=== PATIENT | female | born 1945 | race Caucasian/White ===

== ENCOUNTER 2016-12-27 18:34 | Inpatient (IN) | payer MEDICARE, OTHER ==
--- NOTE | ~2016-12-27 | CN ---
Consultation Report [facility] [address] [place]. [address] NAME: PERCY AZUL : 47 STATUS : ADM IN [facility]#: [id number] AGE: 71 ADM/REG DATE : 12/27/16 MR#: [id number] REPORT SERV DATE: 12/28/16 DICTATED BY: TRISTAN JOSEPH DATE: 12/28/16 REPORT STATUS : Draft TRANSCRIBED BY: MODBriana DATE: 12/28/16 NEUROLOGICAL EVALUATION-CONSULTATION DATE OF CONSULTATION: 12/28/2016 REASON FOR CONSULTATION: Persistent headache, past history of craniotomy, episodes of altered mental status. HISTORY OF PRESENT ILLNESS: This is a 71-year-old white female with known history of hypertension, status post CABG and aortic valve replacement, history of craniotomy for removal of left frontal meningioma at [facility] in 2002, who was admitted with episode of altered mental status and persistent headache. As per the patient and her daughter, who was present during history taking with examination, the patient has had persistent headache that is frontal and unresponsive to ifqh-hvo-rcibgez medications or relieved by rest, which apparently is getting worse every day. The patient stated that she had an episode of "feeling strange," having slurred speech, unable to concentrate the morning prior to admission. The patient denied history of seizures. Denied recent history of illnesses or viral illnesses. Denied travel outside of this area. Denied fever or chills. Denied recent head trauma. Denied loss of consciousness. The patient, however, stated that she has had some nausea and generalized weakness and intermittently, the patient has been feeling sweaty. As per the patient's daughter, the patient has had disturbed sleep for many years. The daughter noticed that the patient's "shaking" has been worse, and the patient appears to have history of essential tremor in the last several years. PAST MEDICAL AND SURGICAL HISTORY: As mentioned above, the patient had history of craniotomy for removal of left frontal meningioma in 2002, status post CABG, status post ?mitral valve versus aortic valve replacement, status post subclavian artery stenting. ALLERGIES: TO PENICILLIN, MORPHINE, CARVEDILOL, AND ADVERSE REACTION TO SEEDS AND NUTS. SOCIAL HISTORY: The patient smokes one or more packs of cigarettes per day in the past 45 years. Denied use of alcohol. Denied use of drugs. The patient lives at home. MEDICATIONS: Prior to admission include aspirin 81 mg p.o. daily, atorvastatin 40 mg p.o. daily, vitamin D 1000 units per day, lorazepam 0.5 mg b.i.d. for the essential tremor, Cozaar 100 mg p.o. daily, metoprolol 25 mg q.h.s. FAMILY HISTORY: Significant for history of cerebral aneurysm in one of the patient's sister's, history of coronary artery disease in several family members, and history of massive heart attack in the patient's mother at age 40. REVIEW OF SYSTEMS: As mentioned above. The 14-point review of systems was done and was negative. Consultation Report [place] [id number] [facility] [place]. [address] NAME: PERCY AZUL : 47 STATUS : ADM IN [facility]#: [id number] AGE: 71 ADM/REG DATE : 12/27/16 MR#: [id number] REPORT SERV DATE: 12/28/16 DICTATED BY: TRISTAN JOSEPH DATE: 12/28/16 REPORT STATUS : Draft TRANSCRIBED BY: BENEDICTO DATE: 12/28/16 PHYSICAL EXAMINATION: VITAL SIGNS: Blood pressure 160/73, pulse was 95, respirations 19, and temperature was 98.2. GENERAL: The patient was alert and cooperative, did not appear in acute distress. HEAD AND NECK: Showed her to be normocephalic, there was no evidence of trauma. Auscultation of the neck showed no evidence of bruits. EYES: Sclerae were not icteric. Conjunctivae were pink. ENT: Unremarkable. Airway appeared slightly small, Mallampati class III. CHEST: Symmetrical. LUNGS: Clear. HEART: Status post CABG. ABDOMEN: Soft and nontender. No organomegaly. EXTREMITIES: Showed no clubbing or cyanosis. There was no peripheral edema. Peripheral pulses were intact. SKIN: Clear. NEUROLOGICAL: The patient was alert, cooperative, oriented x3. Her speech was fluent, there was no evidence of aphasia or dysarthria. Thought content and mood were appropriate. No evidence of distant or recent memory deficits noted. Cranial nerve examination II through XII: Visual barreto on confrontation were intact. Funduscopic exam showed no evidence of papilledema, hemorrhages, or exudates. Pupils were 2-3 mm, equal, round and reactive to light and accommodation. Extraocular movements were full. There was no nystagmus. No limitation of upward or downward gaze was noted. The rest of cranial nerve examination was normal. There was no facial asymmetry. Hearing was intact bilaterally, and the lower cranial nerves were intact. Tongue was midline. No atrophy or fibrillations were noted. Palate elevated symmetrically. Sternocleidomastoid and trapezius muscles were normal. Motor exam: Muscle bulk and tone was normal. The patient appeared to have mild essential tremor, involving primarily the patient's head in "no" fashion. A very minimal tremor on ofqfdy-gb-vchp also noted, involving hands. Strength was 5/5 throughout. Deep tendon reflexes were symmetrical throughout, no asymmetry was noted. Sensory exam showed no evidence of deficits on pinprick, light touch, and vibration. Romberg test was negative. Cerebellar exam: Cedsev-qg-rwns accentuated essential tremor at end point. Tzxd-bj-plbg was normal. Rapid alternating movements are slightly clumsy, but within normal range. The patient's gait was normal. LABORATORY STUDIES: Sodium 134, potassium 3.7, chloride 106, BUN 13, creatinine 0.96, calcium 9.5, glucose 123, phosphorus 3.5, magnesium 2.4. WBC count 7.4, hemoglobin 14.1, hematocrit 40.9, platelet count 216,000. PT/INR 1. TSH 1.340. CT scan of the head was reviewed and showed status post craniectomy involving left frontal region with small area of hyperintensity under calvarium, it appears to be old with encephalomalacia in that region. IMPRESSION: 1. Persistent frontal headache, which as per the patient is greater on the right than on the left. Status post left frontal craniectomy and craniotomy for removal of meningioma in 2002. No evidence of regrowth of meningioma noted on CT. The patient may not be a candidate for an MRI in view of for "metal plate," however, it is the Consultation Report [address] [place]. [address] NAME: PERCY AZUL : 47 STATUS : ADM IN [facility]#: [id number] AGE: 71 ADM/REG DATE : 12/27/16 MR#: [id number] REPORT SERV DATE: 12/28/16 DICTATED BY: TRISTAN JOSEPH DATE: 12/28/16 REPORT STATUS : Draft TRANSCRIBED BY: BENEDICTO DATE: 12/28/16 aortic or mitral valve that may be the reason for us not to be able to obtain the MRI since the patient has no information concerning it. The patient's daughter is going to look for the appropriate information to provide to us. 2. Possible recurrent or new onset of partial seizures, involving left frontal region, which may produce episodes of "altered mental status" and possibly abnormal behavior or personality changes in view of its location. Would recommend to obtain an EEG and if needed, an outpatient EEG followup. If abnormal, recommend starting the patient on Keppra 250 b.i.d. or 500 b.i.d. initially. Neurological followup is recommended. 3. Status post CABG for coronary artery disease. 4. Rule out recurrent cardiac arrhythmias. 5. Increased risk of stroke, hypertension, coronary artery disease, tobacco abuse. 6. Tobacco abuse. Deleterious effects of smoking and counseling for smoking cessation was done during this visit. The patient may need to have a prescription for medications appropriate to provide help in smoking cessation. 7. Laboratory studies, should also obtain serum vitamin B12 and folate level and sedimentation rate. 8. Family history of cerebral aneurysm in the patient's sister. Would recommend to obtain CTA of neck and brain to rule out AVM or cerebral aneurysm. Thank you for allowing us to participate in this patient's care. Additional recommendations will follow according to the patient's progress and results of abovementioned studies. BERNARDINO/BENEDICTO Tristan Joseph MD / [id number] CC: Hellen Shell M.D.
--- NOTE | ~2016-12-27 | HP ---
History And Physical [facility] [address] [place]. [address] NAME: PERCY AZUL : 47 STATUS : ADM IN [facility]#: [id number] AGE: 71 ADM/REG DATE : 12/27/16 MR#: [id number] REPORT SERV DATE: 12/28/16 DICTATED BY: LINA ALVARADO DATE: 12/27/16 REPORT STATUS : Draft TRANSCRIBED BY: BENEDICTO DATE: 12/27/16 DATE OF ADMISSION: 12/27/2016 REASON FOR ADMISSION: Slurred speech since this morning when she woke up. Primary care doctor appears to be unclear, I cannot read that writing but Dr. Fields is the linter operator. She has seen Dr. Marinelli for thoracic surgery needs. It appears that PCP is actually Dr. Lantigua. HISTORY OF PRESENT ILLNESS: This is a 71-year-old, female with known history of CAD, history of bypass by Dr. Marinelli x4, history of tobacco use and still unfortunately ongoing, at least 45-pack year history, history of meningioma with surgical resection at [facility] 2002 with a craniotomy at that time, history of appendectomy, hypertension, hyperlipidemia, angioplasty as well, the left subclavian artery with a stent at that time, mitral valve bioprosthesis as well. Hypovitaminosis D, generalized anxiety disorder, apparently on Ativan. The patient comes in with slurred speech since this morning, a progressive headache for the past month, getting worse every day. Nothing seems to worsen it though as well as having lethargy, "feeling strange." Headache appears to be more on the right than the left side. The patient had a CT here, did not show any acute pathology, did note previous left frontal parietal craniotomy though. The patient denies any fevers or chills. Positive nausea. Positive weakness, positive diaphoresis, positive new headache the last month, positive family history of early CAD and AVMs in the family, may have one of her family members due to a brain aneurysm. No chest pain. No chest pressure. No shortness of breath. No diarrhea. No vomiting, positive nausea. PAST MEDICAL HISTORY/PAST SURGICAL HISTORY: See above. ALLERGIES: APPARENTLY ARE TO PENICILLIN, MORPHINE WHICH IS QUESTIONABLE, HIGH FEVER "SICK." CARVEDILOL GIVES HIVES BUT YET SUPPOSEDLY SHE TAKES METOPROLOL. SEEDS AND NUTS CAUSE DRUG INTOLERANCE WITH DIVERTICULITIS. SOCIAL HISTORY: Continued tobacco abuser, at least 45 pack years actively smoking a pack a day. No drug use. No alcohol use per patient. Lives at home. HOME MEDICATIONS: See MAR. We will continue what is relevant. FAMILY HISTORY: As I said, early CAD and one family member may have from brain aneurysm that ruptured. History And Physical [address] [place]. [address] NAME: PERCY AZUL : 47 STATUS : ADM IN PAT#: [id number] AGE: 71 ADM/REG DATE : 12/27/16 MR#: [id number] REPORT SERV DATE: 12/28/16 DICTATED BY: LINA ALVARADO DATE: 12/27/16 REPORT STATUS : Draft TRANSCRIBED BY: BENEDICTO DATE: 12/27/16 REVIEW OF SYSTEMS: Review of systems done, see HPI. Otherwise, negative. OBJECTIVE: VITAL SIGNS: Blood pressure 194/93, 98.6 temp, pulse 106, 16 respirations, 98% on room air. GENERAL: No acute distress. HEENT: PERRLA. No scleral icterus. CARDIOVASCULAR: Tachycardic but appears regular. No carotid murmur. RESPIRATORY: Decreased breath sounds. No overt wheezes or crackles. ABDOMEN: Nontender, nondistended. Positive bowel sounds. EXTREMITIES: No edema, no ecchymosis. NEURO: A and O x4/4. GCS of 15. Bilateral upper and lower extremity 5/5 power. LABORATORY DATA: White count 7.8, hemoglobin 14.6, 214,000 platelets, 4.1 potassium, 29 of bicarb, 0.98 creatinine, 13 BUN, 143 sodium, 131 sugar, alkaline phosphatase 125, AST over ALT 23 over 26, albumin 3.5, troponin is normal. CT of the brain see above. EKG is still pending. ASSESSMENT AND PLAN: 1. Clinical stroke. Time of onset is possibly in her sleep very early this morning. 2. History of coronary artery disease equivalent. 3. Headache. 4. Hypertension. 5. Hyperlipidemia. 6. Continued active smoking abuse. PLAN: We will go ahead and admit this patient. Ask for Neurology consultation given her slurred speech. Get a CTA. The patient has known metal plating in her sternum and also in her brain apparently and as a result, may not be MRI compatible at the time, was stated was not, as a result, we will not experiment with an MRI. CTA of the brain and carotid ultrasound, echo, EKG, stroke workup, Lipitor 80, full dose aspirin, and permissive hypertension. See rest of my orders. All questions were answered. It took well over 60 minutes to do. N.p.o. until Speech Therapy evaluates the patient with D5 LR. WST/FREDDYL Lina Alavrado DO / [id number] History And Physical [address] [address] NAME: PERCY AZUL : 47 STATUS : ADM IN PAT#: [id number] AGE: 71 ADM/REG DATE : 12/27/16 MR#: [id number] REPORT SERV DATE: 12/28/16 DICTATED BY: LINA ALVARADO DATE: 12/27/16 REPORT STATUS : Draft TRANSCRIBED BY: MODBriana DATE: 12/27/16 CC: Hellen Mckeon M.D.
--- NOTE | ~2016-12-27 | EEG ---
Electroencephalogram [place] [id number] [place]. [address] NAME: PERCY AZUL : 47 STATUS : DIS IN PAT#: [id number] AGE: 71 ADM/REG DATE : 12/27/16 MR#: [id number] REPORT SERV DATE: 01/05/17 DICTATED BY: TRISTAN JOSEPH DATE: 01/05/17 REPORT STATUS : Draft TRANSCRIBED BY: MODBriana DATE: 01/05/17 INTERPRETING PHYSICIAN: Tristan Joseph MD. EEG NUMBER: [id number]. REASON FOR EEG: Possible seizure activity. The patient has a skull defect in the left frontotemporal area and past history of meningioma surgery. 23 surface electrodes, 10-20 international placement was used. The patient was noted to be awake and drowsy. The background activity consisted of relatively well-organized, irregular in appearance 9 to 10 cycles per second located in the posterior head regions. Moderate amount of low-voltage. Beta range activity was also seen scattered throughout. Irregular in appearance of fast activity was seen in the right frontal central regions which may represent "breech" artifact from the past craniotomy. The patient was noted to be awake and drowsy throughout the study. Video monitoring was utilized. Photic stimulation was performed. No paroxysmal or epileptiform activity was seen during this study. Overall, no significant abnormalities were present except for signs of possible artifact related to the craniotomy. Clinical correlation is recommended. BERNARDINO/BENEDICTO Tristan Joseph MD / [id number] CC: Hellen Shell M.D.
--- NOTE | ~2016-12-27 | DS ---
Discharge Summary [facility] [address] [place]. [address] NAME: PERCY AZUL : 47 STATUS : DIS IN PAT#: [id number] AGE: 71 ADM/REG DATE : 12/27/16 MR#: [id number] REPORT SERV DATE: 12/30/16 DICTATED BY: JAH POST DATE: 12/30/16 REPORT STATUS : Draft TRANSCRIBED BY: MODL DATE: 12/30/16 ADMISSION DATE: 12/27/2016 DISCHARGE DATE: 12/30/2016 CONDITION ON DISCHARGE: Stable. DISPOSITION: Discharged to home. DISCHARGE DIAGNOSES: 1. Left lung mass. The lung mass itself is an irregular nodular density in the left upper perihilar region extending into the left hilum. This is also associated with left hilar and mediastinal adenopathy and highly suspicious for lung cancer. The patient also has a small right upper lobe lung nodule. The irregular left upper perihilar nodular mass in the lung is amenable for CT-guided biopsy at this time, but the patient is insisting that she goes home and get this done as outpatient. 2. Other diagnoses that are stable at this time include the following: Slurred speech that was the main reason for this patient being admitted, this has resolved and we have found that there is no new stroke or any new acute cerebrovascular accident that was found on the MRI on this patient. At this time, her slurred speech has also resolved even though some tongue deviation persists and this could be related to her previous surgery which was basically meningioma resection. The patient has been evaluated by neurologist at this time and has been cleared for discharge. 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 The patient has been counseled extensively again stopping smoking and she states that she will. The patient also has generalized anxiety disorder and hypovitaminosis D, which is all being addressed as outpatient. BRIEF HOSPITAL COURSE: The patient is a 71-year-old female patient, who was admitted with signs and symptoms as outlined in history and physical exam. Even though she was admitted with slurred speech and a stroke, rule out in the process of working her up, we did a CTA of the neck and CTA of the brain with and without contrast. Even though this did not reveal any acute CVA, in the process, it did reveal that the patient had multiple lung nodules specially a left hilar lung nodule that was highly suspicious for cancer. In addition to this, the patient also had mediastinal adenopathy which again raises suspicion for lung cancer in this patient who has had 04-libn-essf smoke history. Neurology was consulted, and it was decided that we will get an MRI of the brain to rule out stroke and also at the same time to rule out any metastatic lesions. The patient did undergo an MRI of Discharge [address] [place]. [address] NAME: PERCY AZUL : 47 STATUS : DIS IN PAT#: [id number] AGE: 71 ADM/REG DATE : 12/27/16 MR#: [id number] REPORT SERV DATE: 12/30/16 DICTATED BY: JAH POST DATE: 12/30/16 REPORT STATUS : Draft TRANSCRIBED BY: BENEDICTO DATE: 12/30/16 the brain that did not show any evidence of any metastatic lesions at this time and no acute CVA. The tongue deviation is really strange, and this could have been related somehow to the previous surgery that she had, but at least for now, stroke it is not being considered or has been ruled out for now. More importantly, the patient now has an irregular lung mass that was found on a dedicated CT scan of the chest with contrast. CT chest with and without contrast that was done on 12/30/2016 reveals an irregular nodular density in the left upper perihilar region of the lung extending into the left hilum with left hilar and mediastinal adenopathy highly suspicious for lung cancer. This has been extensively explained to the patient and also her daughters and family. They have agreed to take her home and bring her back for a CT-guided biopsy. I gave them the option of the patient staying in the hospital and getting this done as an inpatient, but the patient and family insist that they go home hence this is being arranged as an outpatient. We will schedule them for a CT-guided biopsy of this left upper lung or hilar lung mass. We have also arranged for the patient to follow up with an oncologist within the next 7 to 10 days. We will try to get her an appointment with Dr. Sanders. The patient or family do not have any particular preference for any oncologist at this time. At this time, it has been explained that even if the CT-guided biopsy of this lung mass turns out to be benign, which is highly unlikely, it does not hurt for the patient to keep appointment with oncologist and make sure that this is malignant or not and for further followup. As the patient is being discharged home after 05:30 on 12/30/2016, I am unable to reach Dr. Lantigua in his office at this time, but this summary sent to him should be able to be read by him. Besides the patient and family has been extensively educated regarding followup of this lung mass, which is likely lung cancer. The patient's medications at home will remain unchanged at this time, and she has been advised to continue the following medications that she has been taking at home. 1. Continue lorazepam 0.5 mg p.o. twice a day. 2. Losartan or Cozaar 100 mg once a day. 3. Lipitor 40 mg once a day. 4. Toprol-XL 25 mg p.o. once at bedtime. 5. Aspirin 81 mg once a day. 6. Vitamin D3 2000 units once a day. LABORATORY DATA: The labs that I have most recently on her include a CBC that was done today on the day of discharge, that is completely normal. Electrolyte profile that was done today on the day of discharge, that is normal with normal BUN and creatinine and normal magnesium and normal phosphorus. Culture of the urine that was done revealed approximately 100,000 colony count per mL of organisms, but mixed gram-positive cocci and diphtheroid like organisms which are most likely contaminants. Hence, the patient being asymptomatic. We are not going to unnecessarily treat her for this. Other than that, all the other tests that the patient has had, has been described above in my summary and she is being discharged home in stable condition with advice to get this CT- guided biopsy of the left lung nodule which is likely malignant to be done as soon as possible. I have spent about 40 minutes in coordinating discharge care of this patient including face- to-face encounter, extensive family counseling, and also dictating this summary. Discharge Summary [place] [id number] [place] [address] NAME: PERCY AZUL : 47 STATUS : DIS IN PAT#: [id number] AGE: 71 ADM/REG DATE : 12/27/16 MR#: [id number] REPORT SERV DATE: 12/30/16 DICTATED BY: JAH POST DATE: 12/30/16 REPORT STATUS : Draft TRANSCRIBED BY: MODL DATE: 12/30/16 RRA/FREDDYL Jah Post M.D. / [id number] CC: Hellen Shell M.D.
[2016-12-27 15:18] LABS: BASOPHILS 0.3 %; BASOPHILS ABSOLUTE 0.02 10/3/uL (0.0-0.16); EOSINOPHILS 0.1 %; EOSINOPHILS ABSOLUTE 0.01 10/3/uL (0.0-0.53); HEMATOCRIT 42.2 % (36.0-48.0); HEMOGLOBIN 14.6 g/dL (12.0-16.0); IMMATURE GRANULOCYTES 0.1 %; IMMATURE GRANULOCYTES ABSOLUTE 0.01 10/3/uL (0.0-0.11); LYMPHOCYTES 25.5 %; LYMPHOCYTES ABSOLUTE 1.99 10/3/uL (0.67-4.30); MANUAL DIFF NO %; MEAN CORPUS HGB CONC 34.6 g/dL (32.0-36.0); MEAN CORPUSCULAR HEMOGLOB 30.2 pg (26.0-34.0); MEAN CORPUSCULAR VOLUME 87.4 fL (80-100); MEAN PLATELET VOLUME 9.5 fL (9.2-13.0); MONOCYTES 7.4 %; MONOCYTES ABSOLUTE 0.58 10/3/uL (0.21-1.20); NEUTROPHILS 66.6 %; PLATELET COUNT 214 10/3/uL (150-400); RBC DISTRIBUTION WIDTH 13.2 % (12.0-16.0); RED CELL COUNT 4.83 10/6/uL (4.0-5.6); WHITE BLOOD CELLS 7.8 10/3/uL (4.5-10.5)
[2016-12-27 15:23] LABS: PROTIME (NOT ORD) 13.2 SEC (12.0-14.5)
[2016-12-27 15:24] LABS: PARTIAL THROMBO TIME 28.6 SEC (22.5-37.2)
[2016-12-27 15:35] LABS: A/G RATIO 0.9 (0.7-1.9); ALBUMIN 3.5 G/DL (3.5-5.0); ALKALINE PHOSPHATASE 125 U/L (45-117); BUN (BLOOD UREA NITROGEN) 13 MG/DL (6-23); CALCIUM, SERUM 9.2 MG/DL (8.5-10.4); CHLORIDE, SERUM 105 MMOL/L (96-112); CO2 (CARBON DIOXIDE) 29 MMOL/L (24-34); CREATININE 0.98 MG/DL (0.55-1.02); GFR AFRICAN AMERICAN 68 ML/MIN (>=60); GFR NON AFRICAN AMERICAN 58 ML/MIN (>=60); GLUCOSE, SERUM 131 MG/DL (60-99); POTASSIUM, SERUM 4.1 MMOL/L (3.5-5.3); SGOT(AST) 22 U/L (5-40); SGPT(ALT) 26 U/L (5-65); SODIUM, SERUM 143 MMOL/L (135-148); TOTAL BILIRUBIN 0.4 MG/DL (0-1.2); TOTAL PROTEIN 7.5 G/DL (6.0-8.5); TROPONIN I <0.02 NG/ML (<0.05)
[~2016-12-27 18:34] MED LIST: ASAB PO; ATV.5 PO; COREG3 PO; LIPITOR40 PO; PLAVIX PO; PRIN5 PO; TOPXL25 PO; VICODIN ES1 TAB PO; VITAMIN D31000 UNIT PO; ZIAC5 PO
[2016-12-27] MEDS ORDERED: ATV.5 PO (18:52)
[2016-12-27] MEDS ORDERED: COZAAR100 MG PO (18:52)
[2016-12-27] MEDS ORDERED: PROBIOTIC PO (18:52)
[2016-12-27] MEDS ORDERED: ASAB PO (18:53)
[2016-12-27] MEDS ORDERED: VITAMIN D31000 UNIT PO (18:53)
[2016-12-27] MEDS ORDERED: LIPITOR40 PO (18:53)
[2016-12-27] MEDS ORDERED: TOPXL25 PO (18:53)
[2016-12-27 22:40] LABS: BASOPHILS 0.5 %; BASOPHILS ABSOLUTE 0.04 10/3/uL (0.0-0.16); EOSINOPHILS 0.4 %; EOSINOPHILS ABSOLUTE 0.03 10/3/uL (0.0-0.53); HEMATOCRIT 39.8 % (36.0-48.0); HEMOGLOBIN 13.7 g/dL (12.0-16.0); IMMATURE GRANULOCYTES 0.1 %; IMMATURE GRANULOCYTES ABSOLUTE 0.01 10/3/uL (0.0-0.11); LYMPHOCYTES 34.2 %; MANUAL DIFF NO %; MEAN CORPUS HGB CONC 34.4 g/dL (32.0-36.0); MEAN CORPUSCULAR HEMOGLOB 29.7 pg (26.0-34.0); MEAN CORPUSCULAR VOLUME 86.3 fL (80-100); MEAN PLATELET VOLUME 9.8 fL (9.2-13.0); MONOCYTES 7.6 %; MONOCYTES ABSOLUTE 0.58 10/3/uL (0.21-1.20); NEUTROPHILS 57.2 %; NEUTROPHILS ABSOLUTE 4.35 10/3/uL (2.02-8.40); PLATELET COUNT 200 10/3/uL (150-400); RBC DISTRIBUTION WIDTH 13.2 % (12.0-16.0); RED CELL COUNT 4.61 10/6/uL (4.0-5.6); WHITE BLOOD CELLS 7.6 10/3/uL (4.5-10.5)
[2016-12-27 22:58] LABS: A/G RATIO 0.8 (0.7-1.9); ALBUMIN 3.2 G/DL (3.5-5.0); BUN (BLOOD UREA NITROGEN) 13 MG/DL (6-23); CALCIUM, SERUM 8.7 MG/DL (8.5-10.4); CHLORIDE, SERUM 105 MMOL/L (96-112); CO2 (CARBON DIOXIDE) 25 MMOL/L (24-34); CREATININE 0.97 MG/DL (0.55-1.02); GFR AFRICAN AMERICAN 69 ML/MIN (>=60); GFR NON AFRICAN AMERICAN 59 ML/MIN (>=60); GLUCOSE, SERUM 132 MG/DL (60-99); PHOSPHORUS, SERUM 3.4 MG/DL (2.5-4.5); POTASSIUM, SERUM 3.6 MMOL/L (3.5-5.3); SGOT(AST) 19 U/L (5-40); SGPT(ALT) 24 U/L (5-65); SODIUM, SERUM 140 MMOL/L (135-148); TOTAL BILIRUBIN 0.4 MG/DL (0-1.2); TOTAL PROTEIN 7.2 G/DL (6.0-8.5)
[2016-12-27 22:59] LABS: ALKALINE PHOSPHATASE 110 U/L (45-117)
[2016-12-28 00:43] LABS: ASCORBIC ACID (UR NOT ORDER) NEG (NEG); BILIRUBIN, URINE NEGATIVE (NEG); KETONE, URINE NEGATIVE (NEG); LEUKOCYTE ESTERASE(NOT OR SMALL (NEG); WBC (NOT ORDERED) (RFLEX) 2 (0-5)
[2016-12-28 06:02] LABS: BASOPHILS 0.4 %; BASOPHILS ABSOLUTE 0.03 10/3/uL (0.0-0.16); EOSINOPHILS 0.5 %; EOSINOPHILS ABSOLUTE 0.04 10/3/uL (0.0-0.53); HEMATOCRIT 40.9 % (36.0-48.0); HEMOGLOBIN 14.1 g/dL (12.0-16.0); IMMATURE GRANULOCYTES 0.1 %; IMMATURE GRANULOCYTES ABSOLUTE 0.01 10/3/uL (0.0-0.11); LYMPHOCYTES 44.5 %; LYMPHOCYTES ABSOLUTE 3.31 10/3/uL (0.67-4.30); MANUAL DIFF NO %; MEAN CORPUS HGB CONC 34.5 g/dL (32.0-36.0); MEAN PLATELET VOLUME 9.7 fL (9.2-13.0); MONOCYTES 7.7 %; MONOCYTES ABSOLUTE 0.57 10/3/uL (0.21-1.20); NEUTROPHILS 46.8 %; NEUTROPHILS ABSOLUTE 3.48 10/3/uL (2.02-8.40); PLATELET COUNT 216 10/3/uL (150-400); RBC DISTRIBUTION WIDTH 13.2 % (12.0-16.0); WHITE BLOOD CELLS 7.4 10/3/uL (4.5-10.5)
[2016-12-28 06:20] LABS: BUN (BLOOD UREA NITROGEN) 13 MG/DL (6-23); CALCIUM, SERUM 9.5 MG/DL (8.5-10.4); CHLORIDE, SERUM 106 MMOL/L (96-112); CO2 (CARBON DIOXIDE) 26 MMOL/L (24-34); CREATININE 0.96 MG/DL (0.55-1.02); GFR AFRICAN AMERICAN 69 ML/MIN (>=60); GFR NON AFRICAN AMERICAN 60 ML/MIN (>=60); GLUCOSE, SERUM 123 MG/DL (60-99); PHOSPHORUS, SERUM 3.4 MG/DL (2.5-4.5); POTASSIUM, SERUM 3.7 MMOL/L (3.5-5.3); SODIUM, SERUM 143 MMOL/L (135-148)
[2016-12-28 13:08] LABS: CHOL/HDL RATIO(NOT ORDER) 1.9 (0-5); CHOLESTEROL 95 MG/DL (< 200); HDL CHOLESTEROL 49 MG/DL (> 49); LDL CHOLESTEROL 27 MG/DL (< 130); NON-HDL CHOLESTEROL 46 MG/DL (< 160); TRIGLYCERIDE 99 MG/DL (< 150)
[2016-12-28 13:09] LABS: FOLATE 12.5 NG/ML (>5.2)
[2016-12-29 05:18] LABS: BASOPHILS 0.6 %; BASOPHILS ABSOLUTE 0.04 10/3/uL (0.0-0.16); EOSINOPHILS 0.9 %; EOSINOPHILS ABSOLUTE 0.06 10/3/uL (0.0-0.53); HEMATOCRIT 38.2 % (36.0-48.0); IMMATURE GRANULOCYTES 0.2 %; IMMATURE GRANULOCYTES ABSOLUTE 0.01 10/3/uL (0.0-0.11); LYMPHOCYTES 41.3 %; MEAN CORPUSCULAR HEMOGLOB 29.7 pg (26.0-34.0); MEAN CORPUSCULAR VOLUME 87.4 fL (80-100); MEAN PLATELET VOLUME 9.8 fL (9.2-13.0); MONOCYTES 8.7 %; MONOCYTES ABSOLUTE 0.57 10/3/uL (0.21-1.20); NEUTROPHILS 48.3 %; NEUTROPHILS ABSOLUTE 3.16 10/3/uL (2.02-8.40); PLATELET COUNT 203 10/3/uL (150-400); RBC DISTRIBUTION WIDTH 13.1 % (12.0-16.0); RED CELL COUNT 4.37 10/6/uL (4.0-5.6); WHITE BLOOD CELLS 6.5 10/3/uL (4.5-10.5)
[2016-12-29 05:21] LABS: MANUAL DIFF NO %
[2016-12-29 05:31] LABS: BUN (BLOOD UREA NITROGEN) 16 MG/DL (6-23); CALCIUM, SERUM 8.7 MG/DL (8.5-10.4); CHLORIDE, SERUM 108 MMOL/L (96-112); CO2 (CARBON DIOXIDE) 27 MMOL/L (24-34); CREATININE 0.97 MG/DL (0.55-1.02); GFR AFRICAN AMERICAN 69 ML/MIN (>=60); GFR NON AFRICAN AMERICAN 59 ML/MIN (>=60); GLUCOSE, SERUM 110 MG/DL (60-99); PHOSPHORUS, SERUM 3.3 MG/DL (2.5-4.5); POTASSIUM, SERUM 3.8 MMOL/L (3.5-5.3); SODIUM, SERUM 143 MMOL/L (135-148)
[2016-12-30 05:52] LABS: BASOPHILS 0.4 %; BASOPHILS ABSOLUTE 0.03 10/3/uL (0.0-0.16); EOSINOPHILS 0.6 %; EOSINOPHILS ABSOLUTE 0.04 10/3/uL (0.0-0.53); HEMATOCRIT 38.6 % (36.0-48.0); HEMOGLOBIN 13.1 g/dL (12.0-16.0); LYMPHOCYTES 32.9 %; LYMPHOCYTES ABSOLUTE 2.26 10/3/uL (0.67-4.30); MEAN CORPUS HGB CONC 33.9 g/dL (32.0-36.0); MEAN CORPUSCULAR HEMOGLOB 29.4 pg (26.0-34.0); MEAN CORPUSCULAR VOLUME 86.7 fL (80-100); MEAN PLATELET VOLUME 9.5 fL (9.2-13.0); MONOCYTES 7.9 %; MONOCYTES ABSOLUTE 0.54 10/3/uL (0.21-1.20); NEUTROPHILS 58.2 %; NEUTROPHILS ABSOLUTE 3.99 10/3/uL (2.02-8.40); PLATELET COUNT 188 10/3/uL (150-400); RBC DISTRIBUTION WIDTH 13.4 % (12.0-16.0); RED CELL COUNT 4.45 10/6/uL (4.0-5.6); WHITE BLOOD CELLS 6.9 10/3/uL (4.5-10.5)
[2016-12-30 06:03] LABS: MANUAL DIFF NO %
[2016-12-30 06:08] LABS: BUN (BLOOD UREA NITROGEN) 12 MG/DL (6-23); CALCIUM, SERUM 8.9 MG/DL (8.5-10.4); CHLORIDE, SERUM 109 MMOL/L (96-112); CO2 (CARBON DIOXIDE) 20 MMOL/L (24-34); CREATININE 0.81 MG/DL (0.55-1.02); GFR AFRICAN AMERICAN 85 ML/MIN (>=60); GFR NON AFRICAN AMERICAN 74 ML/MIN (>=60); GLUCOSE, SERUM 106 MG/DL (60-99); PHOSPHORUS, SERUM 3.3 MG/DL (2.5-4.5); POTASSIUM, SERUM 3.9 MMOL/L (3.5-5.3); SODIUM, SERUM 142 MMOL/L (135-148)
[2017-01-05] MEDS ORDERED: ACETSUP650 PO (06:53)
== END 2016-12-30 18:18 | disposition home or self-care (01) | DRG 65 ==
LOC: ER 18:34 → 1SO 19:19
PROVIDERS: Emergency Medicine; Hospitalist; Internal Medicine
DX: I63.9 Cerebral infarction, unspecified (principal); C34.12 Malignant neoplasm of upper lobe, left bronchus or lung; I10 Essential (primary) hypertension; E78.5 Hyperlipidemia, unspecified; R47.81 Slurred speech; E55.9 Vitamin D deficiency, unspecified; I25.10 Atherosclerotic heart disease of native coronary artery without angina pectoris; F17.210 Nicotine dependence, cigarettes, uncomplicated; F41.1 Generalized anxiety disorder; Z95.1 Presence of aortocoronary bypass graft; Z95.2 Presence of prosthetic heart valve; Z79.82 Long term (current) use of aspirin; Z79.899 Other long term (current) drug therapy; Z88.0 Allergy status to penicillin; Z88.5 Allergy status to narcotic agent; Z88.8 Allergy status to other drugs, medicaments and biological substances; Z91.018 Allergy to other foods
CPT/HCPCS: 70450; 70496; 70498; 70553; 71020; 71260; 80048; 80053; 80061; 81001; 82607; 82746; 82962; 83605; 83735; 84100; 84145; 84443; 84484; 85025; 85610; 85730; 87086; 87449; 92610-GN; 93005; 93306; 93880; 95816; 97161-GP; 99285; A9270-GY; A9577; G8978-CH-GP; G8979-CH-GP; G8980-CH-GP; G8996-CI-GN; G8997-CI-GN; G8998-CI-GN; J0360; Q9967

== ENCOUNTER 2017-06-16 21:18 | Emergency (ER) | payer MEDICARE, OTHER ==
[~2017-06-16 21:18] MED LIST changes: +ACETSUP650 PO; +COZAAR100 MG PO; +PROBIOTIC PO
[2017-06-16 23:10] LABS: BASOPHILS 0.4 %; BASOPHILS ABSOLUTE 0.02 10/3/uL (0.0-0.16); EOSINOPHILS 0.5 %; EOSINOPHILS ABSOLUTE 0.03 10/3/uL (0.0-0.53); HEMATOCRIT 37.5 % (36.0-48.0); HEMOGLOBIN 12.6 g/dL (12.0-16.0); IMMATURE GRANULOCYTES 0.2 %; IMMATURE GRANULOCYTES ABSOLUTE 0.01 10/3/uL (0.0-0.11); LYMPHOCYTES 32.4 %; LYMPHOCYTES ABSOLUTE 1.77 10/3/uL (0.67-4.30); MANUAL DIFF NO %; MEAN CORPUS HGB CONC 33.6 g/dL (32.0-36.0); MEAN CORPUSCULAR HEMOGLOB 30.7 pg (26.0-34.0); MEAN CORPUSCULAR VOLUME 91.2 fL (80-100); MEAN PLATELET VOLUME 10.1 fL (9.2-13.0); MONOCYTES 5.5 %; NEUTROPHILS ABSOLUTE 3.33 10/3/uL (2.02-8.40); PLATELET COUNT 186 10/3/uL (150-400); RBC DISTRIBUTION WIDTH 13.9 % (12.0-16.0); RED CELL COUNT 4.11 10/6/uL (4.0-5.6); WHITE BLOOD CELLS 5.5 10/3/uL (4.5-10.5)
[2017-06-16 23:19] LABS: PARTIAL THROMBO TIME 29.4 SEC (22.5-37.2); PROTIME (NOT ORD) 13.1 SEC (12.0-14.5)
[2017-06-16 23:23] LABS: BUN (BLOOD UREA NITROGEN) 12 MG/DL (6-23); CALCIUM, SERUM 9.4 MG/DL (8.5-10.4); CHLORIDE, SERUM 106 MMOL/L (96-112); CO2 (CARBON DIOXIDE) 30 MMOL/L (24-34); CREATININE 1.07 MG/DL (0.55-1.02); GFR AFRICAN AMERICAN 60 ML/MIN (>=60); GFR NON AFRICAN AMERICAN 52 ML/MIN (>=60); GLUCOSE, SERUM 105 MG/DL (60-99); POTASSIUM, SERUM 3.6 MMOL/L (3.5-5.3); SODIUM, SERUM 141 MMOL/L (135-148)
[2017-06-17] MEDS ORDERED: ULTRAM50 PO (00:01)
[2017-06-17] MEDS ORDERED: TESS PO (00:02)
== END 2017-06-17 02:06 | disposition home or self-care (01) ==
LOC: ER 21:18
PROVIDERS: Emergency Medicine
DX: R04.2 Hemoptysis (principal); C34.90 Malignant neoplasm of unspecified part of unspecified bronchus or lung; F17.200 Nicotine dependence, unspecified, uncomplicated; C34.12 Malignant neoplasm of upper lobe, left bronchus or lung; J98.11 Atelectasis; I10 Essential (primary) hypertension; Z95.4 Presence of other heart-valve replacement; Z95.2 Presence of prosthetic heart valve; Z85.118 Personal history of other malignant neoplasm of bronchus and lung; Z88.0 Allergy status to penicillin; Z88.5 Allergy status to narcotic agent; Z88.8 Allergy status to other drugs, medicaments and biological substances; Z79.82 Long term (current) use of aspirin; Z79.899 Other long term (current) drug therapy
CPT/HCPCS: 71020; 71275; 74176; 80048; 85025; 85610; 85730; 96374; 99285; J0360; Q9967